=== PATIENT | female | born 1995 | race Caucasian/White ===

== ENCOUNTER 2022-06-26 09:28 | Emergency (ER) | payer MEDICAID, OTHER ==
[~2022-06-26] VITALS: Ht 165.1 cm; Wt 81.6 kg
[2022-06-26] MEDS ORDERED: IBUP-2029 MT (10:00)
[2022-06-26] MEDS ORDERED: D-ME473S50 PO (10:00)
[2022-06-26] MEDS ORDERED: IBUPROFEN 800MG TABLET PO ONE (10:00)
[2022-06-26 11:29] VITALS: BP 135/77
== END 2022-06-26 11:31 | disposition home or self-care (01) ==
LOC: ER 09:28
DX: U07.1 COVID-19 (principal); B34.9 Viral infection, unspecified
CPT/HCPCS: 99283